=== PATIENT | male | born 1990 | race Two or more races ===

== ENCOUNTER 2023-03-05 06:10 | Emergency (ER) | payer OTHER ==
[~2023-03-05] VITALS: Ht 167.6 cm; Wt 69.9 kg
[2023-03-05] MEDS ORDERED: DICLOFENAC SODI75 MG PO (08:32)
[2023-03-05] MEDS ORDERED: AMOX-CLAV 875-1 EACH PO (08:32)
== END 2023-03-05 08:46 | disposition home or self-care (01) ==
LOC: ER 06:11
DX: H66.93 Otitis media, unspecified, bilateral (principal)